=== PATIENT | male | born 2000 | race Two or more races ===

== ENCOUNTER 2024-05-10 03:05 | Emergency (ER) | payer BC, MEDICAID ==
[~2024-05-10] VITALS: Ht 167.6 cm; Wt 72.7 kg
[2024-05-10 03:07] VITALS: TEMP 98.9
[2024-05-10] MEDS: proparacaine 0.5% ophthalmic drops 15ml EACHEYE ONE (03:19)
[2024-05-10] MEDS: erythromycin ophthalmic ointment 1gm tube EACHEYE ONE (03:19)
[2024-05-10] MEDS ORDERED: HYDR-3965 PO (03:45)
[2024-05-10] MEDS ORDERED: ERYT1OIN6 EACHEYE (03:45)
[2024-05-10 03:58] VITALS: BP 128/82; PULSE 71; RESP 17; O2SAT 98
== END 2024-05-10 03:58 | disposition home or self-care (01) ==
LOC: ER 03:06
DX: H16.8 Other keratitis (principal); M79.604 Pain in right leg; M79.605 Pain in left leg
CPT/HCPCS: 99283